=== PATIENT | male | born 1970 | race Caucasian/White ===

== ENCOUNTER → 2016-11-19 | Outpatient (CLI) | payer BC | LOC: CARDREHAB 08:03 | DX: I20.9 Angina pectoris, unspecified (principal); Z00.00 Encounter for general adult medical examination without abnormal findings; J30.9 Allergic rhinitis, unspecified; E11.9 Type 2 diabetes mellitus without complications; F32.9 Major depressive disorder, single episode, unspecified; F42.9 Obsessive-compulsive disorder, unspecified; E78.2 Mixed hyperlipidemia | CPT/HCPCS: A9500 ==

== ENCOUNTER → 2019-04-26 | Day surgery (SDC) | payer BC | END | disposition home or self-care (01) | LOC: MSO 07:16 | DX: Z12.11 Encounter for screening for malignant neoplasm of colon (principal); D12.8 Benign neoplasm of rectum; K57.90 Diverticulosis of intestine, part unspecified, without perforation or abscess without bleeding; E11.9 Type 2 diabetes mellitus without complications; E78.00 Pure hypercholesterolemia, unspecified | CPT/HCPCS: 00811; J2704; J7030; J7120 ==

== ENCOUNTER → 2019-09-11 | Outpatient (CLI) | payer BC | LOC: RAD 07:29 | DX: N50.89 Other specified disorders of the male genital organs (principal) ==

== ENCOUNTER 2023-05-04 18:56 | Emergency (ER) | payer OTHER ==
[~2023-05-04] VITALS: Wt 79.5 kg
[~2023-05-04 18:56] MED LIST: FAMOTIDINE20 MG PO; METFORMIN ER500 MG PO; RYBELSUS7 MG PO; TOPCARE OMEPRAZ20 MG PO; ZOFRAN ODT4 MG PO; ZOLOFT25 M1 PO
[2023-05-04 19:32] LABS: BASO # 0.03 K/mm3 (0.02-0.10); EOS # 0.17 K/mm3 (0.04-0.40); EOS % 1.3 % (0.0-4.0); HEMATOCRIT 43.7 % (42.0-52.0); HEMOGLOBIN 15.6 g/dL (13.5-18.0); LYMPH# 2.72 K/mm3 (1.50-4.00); MEAN CELL VOLUME 87 fl (78-100); MEAN CORPUSCULAR HEMOGLOBIN 31 pg (27-31); MEAN CORPUSCULAR HGB CONC 36 g/dL (33-37); MONO # 0.97 K/mm3 (0.20-0.80); NEU # 8.97 K/mm3 (1.40-6.50); PLATELET COUNT 388 K/mm3 (130-400); RED BLOOD COUNT 5.05 M/mm3 (4.20-5.60); RED CELL DISTRIBUTION WIDTH 11.9 % (11.5-14.5); WHITE BLOOD COUNT 12.9 K/mm3 (4.8-10.8)
[2023-05-04 19:36] LABS: ALBUMIN 4.5 g/dL (3.5-5.0); SODIUM 137 mmol/L (136-145)
[2023-05-04 19:37] LABS: CALCIUM 10.3 mg/dL (8.3-10.5)
[2023-05-04 19:38] LABS: GLUCOSE 337 mg/dL (75-110); TOTAL PROTEIN 8.1 g/dL (6.4-8.3)
[2023-05-04 19:40] LABS: TOTAL BILIRUBIN 1.5 mg/dL (0.2-1.2)
[2023-05-04 19:43] LABS: AST-SGOT 16 U/L (5-34)
[2023-05-04 19:45] LABS: ALT/SGPT 28 U/L (0-55); LIPASE 11 U/L (8-78)
[2023-05-04] MEDS ORDERED: Famotidine 20 MG/2 ML VIAL IV ONE (19:45)
[2023-05-04] MEDS ORDERED: LORazepam 2 MG/ML VIAL IV ONE (19:45)
[2023-05-04] MEDS ORDERED: NS 1,000 ML IV SCH (19:45)
[2023-05-04] MEDS ORDERED: Morphine 4 MG/ML VIAL IV ONE (19:45)
[2023-05-04] MEDS ORDERED: Ondansetron 4 MG/2 ML VIAL IV ONE ×2 (19:45→20:30)
[2023-05-04 19:53] LABS: ALCOHOL IN-HOUSE < 10 mg/dL (<10); CARBON DIOXIDE 16 mmol/L (22-29)
[2023-05-04] MEDS ORDERED: NS IV ONE (20:30)
[2023-05-04] MEDS ORDERED: THIAMINE IV ONE (20:30)
[2023-05-04] MEDS ORDERED: FOLIC ACID 1 MG IV ONE (20:30)
[2023-05-04] MEDS ORDERED: Iohexol 300 - 100 ML VIAL IV ONE (20:52)
[2023-05-04] MEDS ORDERED: Insulin Human Regular (NovoLIN R) SQ ONE (21:30)
[2023-05-04 23:46] LABS: URINE WBC 0 /hpf (0-3)
[2023-05-04 23:52] LABS: URINE APPEARANCE CLEAR (CLEAR); URINE COLOR YELLOW (YELLOW)
[2023-05-04 23:53] LABS: URINE BILIRUBIN NEGATIVE (NEGATIVE); URINE BLOOD NEGATIVE (NEGATIVE); URINE GLUCOSE 3+ (NEGATIVE); URINE KETONE 3+ (NEGATIVE); URINE LEUKOCYTE ESTERASE NEGATIVE (NEGATIVE); URINE NITRATE NEGATIVE (NEGATIVE); URINE PROTEIN(semi-quant) NEGATIVE (NEGATIVE)
[2023-05-05] MEDS ORDERED: Morphine 4 MG/ML VIAL IV ONE (02:45)
[2023-05-05] MEDS ORDERED: Insulin Human Regular (NovoLIN R) IV ONE (03:00)
[2023-05-05 05:53] LABS: BASO # 0.01 K/mm3 (0.02-0.10); EOS # 0.06 K/mm3 (0.04-0.40); EOS % 0.5 % (0.0-4.0); HEMATOCRIT 39.4 % (42.0-52.0); HEMOGLOBIN 13.9 g/dL (13.5-18.0); LYMPH# 2.09 K/mm3 (1.50-4.00); MEAN CELL VOLUME 88 fl (78-100); MEAN CORPUSCULAR HEMOGLOBIN 31 pg (27-31); MEAN CORPUSCULAR HGB CONC 35 g/dL (33-37); MEAN PLATELET VOLUME 8.7 fl (7.4-10.4); MONO # 0.93 K/mm3 (0.20-0.80); NEU # 9.32 K/mm3 (1.40-6.50); PLATELET COUNT 357 K/mm3 (130-400); RED BLOOD COUNT 4.49 M/mm3 (4.20-5.60); WHITE BLOOD COUNT 12.4 K/mm3 (4.8-10.8)
[2023-05-05 05:54] LABS: ALBUMIN 3.9 g/dL (3.5-5.0)
[2023-05-05 05:56] LABS: CALCIUM 8.9 mg/dL (8.3-10.5)
[2023-05-05 05:57] LABS: TOTAL PROTEIN 6.9 g/dL (6.4-8.3)
[2023-05-05 05:59] LABS: TOTAL BILIRUBIN 0.9 mg/dL (0.2-1.2)
[2023-05-05 08:42] VITALS: BP 118/67
== END 2023-05-05 08:50 | disposition home or self-care (01) ==
LOC: ED 18:56
PROVIDERS: Nurse Practitioner
DX: E11.10 Type 2 diabetes mellitus with ketoacidosis without coma (principal); E86.0 Dehydration; R74.02 Elevation of levels of lactic acid dehydrogenase [LDH]
CPT/HCPCS: J1815; J2060; J2270; J2405; J3411; J3490; J7030; J7120; Q9967

== ENCOUNTER 2023-10-01 20:06 | Emergency (ER) | payer OTHER ==
[~2023-10-01] VITALS: Ht 182.9 cm; Wt 84.4 kg
[~2023-10-01 20:06] MED LIST changes: +ATIVAN0.5 MG PO; +METOCLOPRAMIDE10 M5 PO
[2023-10-01] MEDS ORDERED: CEPHALEXIN500 M1 PO (20:29)
[2023-10-01] MEDS ORDERED: LANTUS PEN100 U/ML (20:31)
[2023-10-01 21:50] VITALS: BP 113/78
== END 2023-10-01 21:54 | disposition home or self-care (01) ==
LOC: ED 20:06
DX: S92.424A Nondisplaced fracture of distal phalanx of right great toe, initial encounter for closed fracture (principal); W10.9XXA Fall (on) (from) unspecified stairs and steps, initial encounter
CPT/HCPCS: L4386

== ENCOUNTER 2023-10-13 20:26 | Emergency (ER) | payer OTHER ==
[~2023-10-13 20:26] MED LIST changes: +CEPHALEXIN500 M1 PO; +LANTUS PEN100 U/ML
[2023-10-13 20:58] VITALS: BP 118/65
== END 2023-10-13 21:23 | disposition home or self-care (01) ==
LOC: ED 20:26
DX: S90.819A Abrasion, unspecified foot, initial encounter (principal); W45.0XXA Nail entering through skin, initial encounter
CPT/HCPCS: 90715

== ENCOUNTER → 2023-12-01 | Outpatient (CLI) | payer OTHER ==
[2023-12-01 09:21] LABS: ALBUMIN 4.4 g/dL (3.5-5.0)
[2023-12-01 09:23] LABS: CALCIUM 10.1 mg/dL (8.3-10.5)
[2023-12-01 09:26] LABS: TOTAL BILIRUBIN 1.1 mg/dL (0.2-1.2)
== END ==
LOC: LAB 09:03
PROVIDERS: Family Medicine
DX: E11.42 Type 2 diabetes mellitus with diabetic polyneuropathy (principal); E78.2 Mixed hyperlipidemia

== ENCOUNTER 2024-02-22 23:33 | Emergency (ER) | payer OTHER ==
[~2024-02-22] VITALS: Wt 84.3 kg
[2024-02-22] MEDS ORDERED: NS 1,000 ML IV SCH (23:45)
[2024-02-23] MEDS ORDERED: Morphine 4 MG/ML VIAL IV PRN (00:15)
[2024-02-23] MEDS ORDERED: Ondansetron 4 MG/2 ML VIAL IV ONE (00:15)
[2024-02-23 00:26] LABS: BASO # 0.08 K/mm3 (0.02-0.10); EOS # 0.16 K/mm3 (0.04-0.40); EOS % 1.2 % (0.0-4.0); HEMATOCRIT 47.3 % (42.0-52.0); HEMOGLOBIN 16.6 g/dL (13.5-18.0); LYMPH# 2.28 K/mm3 (1.50-4.00); MEAN CELL VOLUME 88 fl (78-100); MEAN CORPUSCULAR HEMOGLOBIN 31 pg (27-31); MEAN CORPUSCULAR HGB CONC 35 g/dL (33-37); MONO # 0.64 K/mm3 (0.20-0.80); NEU # 9.72 K/mm3 (1.40-6.50); PLATELET COUNT 301 K/mm3 (130-400); RED BLOOD COUNT 5.39 M/mm3 (4.20-5.60); WHITE BLOOD COUNT 12.9 K/mm3 (4.8-10.8)
[2024-02-23 00:30] LABS: ALBUMIN 4.4 g/dL (3.5-5.0)
[2024-02-23 00:32] LABS: CALCIUM 9.8 mg/dL (8.3-10.5)
[2024-02-23 00:33] LABS: TOTAL PROTEIN 7.8 g/dL (6.4-8.3)
[2024-02-23 00:35] LABS: TOTAL BILIRUBIN 1.3 mg/dL (0.2-1.2)
[2024-02-23] MEDS ORDERED: Iohexol 300 - 100 ML VIAL IV ONE (01:10)
[2024-02-23 02:00] VITALS: BP 140/98
[2024-02-24] MEDS ORDERED: ZOFRAN ODT4 MG PO (18:46)
[2024-02-24] MEDS ORDERED: KETOROLAC10 MG PO (18:46)
== END 2024-02-23 02:00 | disposition home or self-care (01) ==
LOC: ED 23:33
PROVIDERS: Nurse Practitioner Family
DX: K52.9 Noninfective gastroenteritis and colitis, unspecified (principal)
CPT/HCPCS: J2270; J2405; J7030; Q9967

== ENCOUNTER 2024-02-24 16:07 | Emergency (ER) | payer OTHER ==
[~2024-02-24] VITALS: Ht 182.9 cm; Wt 81.7 kg
[2024-02-24] MEDS ORDERED: Ondansetron 4 MG/2 ML VIAL IV ONE (16:30)
[2024-02-24] MEDS ORDERED: NS 1,000 ML IV ONE (16:30)
[2024-02-24 16:34] LABS: BASO # 0.07 K/mm3 (0.02-0.10); EOS # 0.11 K/mm3 (0.04-0.40); HEMATOCRIT 44.1 % (42.0-52.0); HEMOGLOBIN 15.5 g/dL (13.5-18.0); MEAN CELL VOLUME 87 fl (78-100); MEAN CORPUSCULAR HEMOGLOBIN 31 pg (27-31); MEAN CORPUSCULAR HGB CONC 35 g/dL (33-37); MEAN PLATELET VOLUME 9.1 fl (7.4-10.4); MONO # 0.64 K/mm3 (0.20-0.80); NEU # 8.28 K/mm3 (1.40-6.50); PLATELET COUNT 320 K/mm3 (130-400); RED BLOOD COUNT 5.07 M/mm3 (4.20-5.60); WHITE BLOOD COUNT 11.3 K/mm3 (4.8-10.8)
[2024-02-24 17:17] LABS: ALBUMIN 4.3 g/dL (3.5-5.0); SODIUM 136 mmol/L (136-145)
[2024-02-24 17:19] LABS: CALCIUM 9.4 mg/dL (8.3-10.5)
[2024-02-24 17:20] LABS: GLUCOSE 175 mg/dL (75-110); TOTAL PROTEIN 7.5 g/dL (6.4-8.3)
[2024-02-24 17:21] LABS: CARBON DIOXIDE 18 mmol/L (22-29)
[2024-02-24 17:22] LABS: TOTAL BILIRUBIN 1.7 mg/dL (0.2-1.2)
[2024-02-24 17:23] LABS: ALCOHOL IN-HOUSE < 10 mg/dL (<10)
[2024-02-24 17:25] LABS: AST-SGOT 19 U/L (5-34)
[2024-02-24 17:26] LABS: ALT/SGPT 31 U/L (0-55)
[2024-02-24 17:27] LABS: LIPASE 11 U/L (8-78)
[2024-02-24] MEDS ORDERED: LORazepam 2 MG/ML VIAL IV ONE (17:30)
[2024-02-24 17:34] LABS: TROPONIN-I < 0.030 ng/mL (0.00-0.033)
[2024-02-24] MEDS ORDERED: Ketorolac 30 MG/ML VIAL IV ONE (17:45)
[2024-02-24] MEDS ORDERED: ZOFRAN ODT4 MG PO (18:46)
[2024-02-24] MEDS ORDERED: KETOROLAC10 MG PO (18:46)
[2024-02-24] MEDS ORDERED: Home Ondansetron ODT 4 MG #2 ODT/PACK PO ONE (19:00)
[2024-02-24] MEDS ORDERED: Home Ketorolac 10 MG #4 TABS/PACK PO ONE (19:00)
[2024-02-24 19:08] VITALS: BP 151/93
== END 2024-02-24 19:41 | disposition home or self-care (01) ==
LOC: ED 16:07
PROVIDERS: Family Medicine
DX: R11.2 Nausea with vomiting, unspecified (principal)
CPT/HCPCS: J1885; J2405; J7030

== ENCOUNTER → 2024-03-07 | Outpatient (CLI) | payer OTHER ==
[~2024-03-07] MED LIST changes: +KETOROLAC10 MG PO
== END ==
LOC: LAB 16:39
DX: E11.42 Type 2 diabetes mellitus with diabetic polyneuropathy (principal)